=== PATIENT | male | born 1980 | race Caucasian/White ===

== ENCOUNTER 2023-07-29 21:33 | Emergency (ER) | payer OTHER, SELFPAY ==
[2023-07-29 21:34] VITALS: BP 165/115; PULSE 93; RESP 15; TEMP 36.4; O2SAT 100; BMI 27.1
--- NOTE | 2023-07-29 22:05 | ED.VIS.CHEST ---
HPI History of Present Illness Chief Complaint: Chest Pain Informant: patient and family Onset/Context/Timing Onset: Days (A couple days) Activity at onset: gradual Timing: Waxes and wanes Quality: Positive for Heaviness and Pressure Location: Substernal Narrative Narrative: Patient presents with chest heaviness and shortness of breath for the past couple of days. He states earlier tonight he felt lightheaded. He has had occasional episodes where his heart feels like it skips beats. He does have a history of hypertension and high cholesterol. He has had a stress test in the past and believes it was about 2 years ago. There is a strong family history of cardiac disease. Patient is under increased stress with a current separation from his significant other. [facility] Medical History (Updated 07/29/23 @ 23:[address] Trixie Rg MD) High cholesterol HTN (hypertension) Home Medications atorvastatin 20 mg tablet 20 mg PO QODAY 07/29/23 [History Last Taken Unknown] lorazepam 1 mg tablet (Ativan) 1 mg PO BID PRN anxiety #14 tabs 07/29/23 [Rx Last Taken Unknown] losartan 25 mg tablet 25 mg PO DAILY 07/29/23 [History Last Taken Unknown] Allergy/AdvReac Type Severity Reaction Status Date / Time No Known Allergies Allergy Verified 07/29/23 21:36 Social History Smoking Status: Current every day smoker tobacco type: cigarettes ROS ROS ED Constitutional Constitutional ED: Denies chills or fever(s) Eyes Eyes: Denies discharge from eye(s) ENT ENT ED: Denies discharge from eye(s), rhinorrhea or sore throat Cardiovascular Cardiovascular: Reports chest pain and palpitations Respiratory/Chest Respiratory/Chest: Reports dyspnea; Denies cough Gastrointestinal Gastrointestinal: Denies abdominal pain, nausea or vomiting Musculoskeletal Musculoskeletal: Denies back pain or extremity pain Integumentary Denies Abrasions or rash Neurologic Neurologic: Denies headache(s) or weakness Psychiatric Psychiatric: Denies anxiety or depression Allergic/Immunologic Allergic/Immunologic ED: Denies lip swelling or urticaria EXAM Physical Exam Const Vital Signs: 07/29/23 21:34 07/29/23 22:16 07/29/23 22:19 Temperature 97.5 F L Temperature Source Temporal Pulse Rate 93 85 Respiratory Rate 15 18 Respiratory Effort Normal Non-Labored Blood Pressure 165/115 H 136/94 H Blood Pressure Mean 131 108 Pulse Ox 100 100 Oxygen Delivery Method Room Air Room Air 07/29/23 22:22 Temperature Temperature Source Pulse Rate Respiratory Rate Respiratory Effort Blood Pressure Blood Pressure Mean Pulse Ox 99 Oxygen Delivery Method Room Air Positive well nourished and well developed General Appearance ED: well developed HEENT Reports normocephalic and head/scalp atraumatic Eyes PERRL and EOMs intact bilaterally Neck supple Chest Wall inspection of chest normal and palpation of chest normal Resp normal respiratory effort and clear to auscultation bilaterally Cardio regular rate and regular rhythm GI normal to inspection, nondistended, normoactive bowel sounds Palpation: soft Extremity normal to inspection Neuro oriented x3 and no sensory deficits noted Sensorium / Orientation: alert Motor Exam: strength 5/5 throughout Psych Psych Narrative: Flat affect Mood & Affect: anxious Skin no rashes or lesions noted MDM MDM MDM Narrative Medical decision making narrative: Patient placed on conveyor monitor. Aspirin given. EKG obtained to evaluate for cardiac arrhythmia/ischemia. Chest x-ray obtained to evaluate for acute lung pathology, cardiac size, or mediastinal abnormality. Labwork obtained to evaluate for leukocytosis, anemia, and electrolyte derangement. History & Record Review Discussion w/independent historian: Patient and Family Lab Data Attestation: I reviewed the patient's lab results. Labs: Laboratory Results - last 24 hr 07/29/23 21:45 WBC 12.4 H RBC 5.22 Hgb 17.0 H Hct 49.0 MCV 93.9 MCH 32.6 H MCHC 34.7 RDW Std Deviation 43.2 RDW Coeff of Amaya 12.5 Plt Count 278 MPV 10.5 Immature Gran % (Auto) 0.400 Neut % (Auto) 67.9 Lymph % (Auto) 23.6 [place] % (Auto) 6.9 Eos % (Auto) 0.8 Baso % (Auto) 0.4 Absolute Neuts (auto) 8.4 H Absolute Lymphs (auto) 2.93 Nucleated RBC % 0 D-Dimer Quant (PE/DVT) < 0.27 L Sodium 139 Potassium 3.5 Chloride 105 Carbon Dioxide 28.0 Anion Gap 6 BUN 10 Creatinine 0.89 Estim Creat Clear Calc 91.46 Est GFR (MDRD) Af Amer 121 Est GFR (MDRD) Non-Af 100 BUN/Creatinine Ratio 11.2 Glucose 103 Calcium 9.4 Troponin I High Sens 4 Radiography Chest X-Ray - ED: 1 View, Read by ED Physician, Normal, Heart, Lungs and Mediastinum Diagnostic Testing: Clinical Impression(s) from Imaging Studies Chest X-Ray 07/29/23 22:24 IMPRESSION: No radiographic evidence of acute cardiopulmonary disease. Electronically Signed: Jovan Blank MD at 22:58 EDT Reading Location ID and State: [facility] / [place] Tel , Service support , EKG Initial EKG: Attestation: I personally reviewed and interpreted this EKG as follows: Interpretation: Sinus Rhythm (Sinus at 95 with no acute ischemia.) Treatment and Re-Evaluation :: CBC was a white count of 12.4 with normal differential. Hemoglobin concentrated at 17. Chemistry studies are unremarkable. Troponin is normal at 4 and D-dimer is less than 0.27. Portable chest x-ray per my interpretation reveals no acute findings. Radiology interpretation reviewed and agrees. EKG is sinus rhythm with no acute ischemia. Patient is had no significant arrhythmias noted on conveyor monitor. On repeat evaluation he states he felt like both of his hands were numb. He did have some hyperventilation. He was given 0.5 mg of IV Ativan to help with anxiety. At this time patient does have some improvement in his symptoms. I did discuss with him that his work-up is normal and I do feel a lot of his symptoms are based on anxiety and stress. He will be given a prescription for Ativan and encouraged to follow-up with his primary care physician for more long-term anxiety medication. Discharge Plan Triage Chief Complaint: Chest Pain ED Provider: Trixie Rg Dx/Rx/DC Orders Clinical Impression: Anxiety, Chest pain Instructions: ED Anxiety Reaction, ED Chest Pain, Noncardiac Prescriptions: New lorazepam [Ativan] 1 mg tablet 1 mg PO BID PRN (Reason: anxiety) Qty: 14 0RF No Action atorvastatin 20 mg tablet 20 mg PO QODAY Patient Comments: TAKE 1 TABLET BY MOUTH DAILY AT BEDTIME. FOR CHOLESTEROL losartan 25 mg tablet 25 mg PO DAILY Patient Comments: TAKE 1 TABLET BY MOUTH EVERY DAY Primary Care Provider: Marco Antonio Campos Referrals: Marco Antonio Campos MD [Primary Care Provider] - 5-7 Days Disposition Disposition: Home, Self Care
[2023-07-29] MEDS: Aspirin 81 MG TAB.CHEW 324 MG PO (22:14)
[2023-07-29] MEDS: Ondansetron 4 MG/2 ML Vial IV (22:14)
[2023-07-29 22:15] LABS: Absolute Lymphocyte Count 2.93 X10^3/uL (0.83-4.51); Absolute Neutrophil Count 8.4 X10^3/uL (2.0-7.7); Basophil# 0.05 X10^3/uL; Basophil% 0.4 % (0-1); Eosinophils% 0.8 % (0-5); Lymphocyte # 2.93 X10^3/ul (0.83-4.51); Lymphocyte % 23.6 % (19-41); Mean Corp Hgb Conc 34.7 g/dL (32-36); Mean Corpuscular Hgb 32.6 pg (27.0-32.0); Mean Corpuscular Volume 93.9 fL (80-94); Mean Platelet Vol. 10.5 fl (6.2-12.0); Monocyte# 0.86 X10^3/uL; Monocyte% 6.9 % (0-10); NRBC Flagged by Analyzer 0 % (0-5); Neutrophil # 8.44 X10^3/uL (2.7-7.7); Neutrophil % 67.9 % (47-70); Platelet Count 278 K/mm3 (150-450); RBC Distribution Width CV 12.5 % (11.6-14.6); RBC Distribution Width SD 43.2 fl (35.1-43.9); Red Blood Count 5.22 M/mm3 (4.6-6.2); White Blood Count 12.4 K/mm3 (4.4-11.0)
[2023-07-29 22:19] VITALS: BP 136/94; PULSE 85; RESP 18; O2SAT 100
[2023-07-29 22:22] VITALS: O2SAT 99
--- NOTE | 2023-07-29 22:24 | RAD_ITS ---
INDICATION: chest pain EXAMINATION/TECHNIQUE: X-RAY - portable upright AP chest x-ray COMPARISON: None. FINDINGS: LINES/DEVICES: None. LUNGS: No consolidation, edema or effusion. No pneumothorax. MEDIASTINUM AND CARDIOVASCULAR STRUCTURES: Cardiac silhouette not enlarged. Central airways and mediastinal contour are unremarkable. BONES AND SOFT TISSUES: Unremarkable. RAD/Chest 1 View (Portable) IMPRESSION: No radiographic evidence of acute cardiopulmonary disease. Electronically Signed: Jovan Blank MD at 22:58 EDT ,
[2023-07-29 22:36] LABS: Anion Gap 6 (5-15); BUN 10 mg/dL (7-18); BUN/Creat Ratio 11.2 RATIO (10-20); Calcium,Total 9.4 mg/dL (8.5-10.1); Chloride 105 mmol/L (98-107); Creatinine, Serum 0.89 mg/dL (0.70-1.30); EST Glomerular Filtration Rate 100 mL/min (>60); Est Glom Filt Rate - Afr Amer 121 mL/min (>60); Estimated Creatinine Clearance 91.46 ml/min; Glucose 103 mg/dL (74-106); Potassium 3.5 mmol/L (3.5-5.1); Sodium Level 139 mmol/L (136-145); Troponin-I HS 4 pg/mL (3.0-78.0)
[2023-07-29 22:38] LABS: D-Dimer Quantitative (DVT/PE) < 0.27 FEU/ug/m (0.27-0.49)
[2023-07-29] MEDS: LORazepam 2 MG/ML Syringe 0.5 MG IV (22:55)
[2023-07-29 23:45] VITALS: BP 118/78; PULSE 82; RESP 16; O2SAT 98
== END 2023-07-29 23:55 | disposition home or self-care (01) ==
PROVIDERS: Emergency Provider Emergency Medicine; PCP Family Medicine; Visit Provider Emergency Medicine
DX: F41.9 Anxiety disorder, unspecified (principal); R07.9 Chest pain, unspecified; F17.210 Nicotine dependence, cigarettes, uncomplicated; I10 Essential (primary) hypertension; E78.00 Pure hypercholesterolemia, unspecified; Z79.899 Other long term (current) drug therapy
CPT/HCPCS: 71045; 80048; 84484; 85025; 85379; 93005; 96374; 96375; 99283; A4216; J2405

== ENCOUNTER 2023-08-12 13:52 | Emergency (ER) | payer OTHER, SELFPAY ==
[2023-08-12 13:54] VITALS: BP 108/61; PULSE 100; RESP 14; TEMP 35.7; O2SAT 100; BMI 25.7
--- NOTE | 2023-08-12 14:03 | EKG12_ITS ---
Test Reason : CP Blood Pressure : / mmHG Vent. Rate : 083 BPM Atrial Rate : 083 BPM P-R Int : 160 ms QRS Dur : 094 ms QT Int : 362 ms P-R-T Axes : 072 018 029 degrees QTc Int : 425 ms Normal sinus rhythm Nonspecific T wave abnormality Abnormal ECG When compared with ECG of 29-JUL-2023 21:38, Nonspecific T wave abnormality now evident in Lateral leads Confirmed by SANDEEP FABIAN, TREVER ([id number]), supervising editor trailer KANDY MARQUEZ ([id number]) on 08/25/2023 12:56:12 PM Referred By: MELISSA Confirmed By:TREVER HOPKINS MD
--- NOTE | 2023-08-12 16:31 | EX.ED.VIS.PS ---
HPI HPI - Psych History of Present Illness Chief Complaint: Anxiety Informant: patient Narrative Narrative: Patient is a 43-year-old male with history of hyperlipidemia and hypertension presenting for increased anxiety as well as insomnia. Patient states he is currently going through a divorce and has been doing a lot of anxiety associated with this. He started Zoloft and hydroxyzine per his PCP yesterday (was seen on Wednesday however the prescription was finally filled yesterday). He states at work today he had he describes as a panic attack. He said he said for like his heart was fluttering in his chest and some was poking him in the chest however this is since resolved. He expresses to me that his main concern is his inability to sleep. He states for the past 4 nights he has not been able to sleep. 2 of those nights he got absolutely no sleep and another 2 nights he only slept for 1 hour. He is cut off caffeine since the anxiety started. Has not had any alcohol in the past 3 to 4 days. He denies any SI or HI. He notes that he is having a hard time focusing and keeping his thoughts straight. No other complaints at this time. Currently has no chest discomfort. [facility] Medical History High cholesterol HTN (hypertension) Home Medications atorvastatin 20 mg tablet 20 mg PO QODAY 07/29/23 [History Last Taken Unknown] lorazepam 1 mg tablet (Ativan) 1 mg PO BID PRN anxiety #14 tabs 07/29/23 [Rx Last Taken Unknown] losartan 25 mg tablet 25 mg PO DAILY 07/29/23 [History Last Taken Unknown] hydroxyzine pamoate 25 mg capsule 25 mg PO Q6H PRN anxiety 08/12/23 [History Last Taken 08/12/23] zolpidem 10 mg tablet (Ambien) 10 mg PO QHS PRN insomnia #5 tabs 08/12/23 [Rx Last Taken Unknown] Allergy/AdvReac Type Severity Reaction Status Date / Time No Known Allergies Allergy Verified 08/12/23 13:53 Social History Smoking Status: Current every day smoker tobacco type: cigarettes ROS ROS ED Constitutional Constitutional ED: Reports other Details: decreased appetite, but improving ; Denies chills or fever(s) Eyes Eyes: Denies change in vision Cardiovascular Cardiovascular: Reports chest pain and racing heartbeat Respiratory/Chest Respiratory/Chest: Denies cough or dyspnea Gastrointestinal Gastrointestinal: Denies abdominal pain, nausea or vomiting Musculoskeletal Musculoskeletal: Denies arthralgias or myalgias Integumentary Denies rash Neurologic Neurologic: Denies headache(s) Psychiatric Psychiatric: Reports anxiety; Denies depression, suicidal ideation or suicidal thoughts EXAM Physical Exam Const Vital Signs: 08/12/23 13:54 Temperature 96.3 F L Temperature Source Temporal Pulse Rate 100 Respiratory Rate 14 Blood Pressure 108/61 Blood Pressure Mean 76 Pulse Ox 100 Oxygen Delivery Method Room Air Positive well nourished and well developed General Appearance ED: well developed and NAD; Negative for pallor HEENT Reports moist mucous membranes normocephalic and atraumatic Eyes PERRL and EOMs intact bilaterally Resp normal respiratory effort and clear to auscultation bilaterally Cardio no murmurs Rate: regular rate Rhythm: regular rhythm GI non-tender and non-distended Extremity normal to inspection Neuro oriented x3 Sensorium / Orientation: alert Motor Exam: muscle tone normal throughout; Negative for general weakness Psych mental status grossly normal, thought process normal, cooperative, affect normal, speech normal and activity/motor behavior normal Skin General Skin Exam: Negative for jaundice or pallor Rashes: no rashes MDM MDM MDM Narrative Medical decision making narrative: Is evaluated for worsening anxiety and insomnia. It appears to be situational associated with the divorce he is going through. Has no HI or SI. Protocol EKG obtained per triage shows normal sinus rhythm with nonspecific T wave changes, does not appear significantly changed compared to prior EKG on 07/29/2023. Patient was evaluated for shortness of breath and chest heaviness as well as lightheadedness on that date in our ER. At that time is also thought to be sedentary to anxiety and he had a negative Cardiac work-up. Given his symptoms are resolved and really seem to be associated with a situational anxiety and stress I do not think he requires another cardiac work-up. Patient is comfortable with this. We will put the patient on a short course of Ambien until his Zoloft hopefully will start helping. I did discuss the case with his PCP, Dr. Verduzco who is agreeable with this plan of care. Patient counseled to avoid alcohol. Counseled return precautions. At this time he does not require inpatient psychiatric evaluation. Given return precautions. Discharged home in stable condition. Rhythm Strip Rhythm Strip: Sinus Rhythm Rate: 83 Ectopy: None EKG Initial EKG: Attestation: I personally reviewed and interpreted this EKG as follows: Interpretation: Sinus Rhythm Comments: Sinus rhythm at a rate of 83 bpm Normal axis Normal intervals None civic T wave changes No significant change compared to prior EKG Management Discussion w/another healthcare provider: PCP Discharge Plan Triage Chief Complaint: Anxiety ED Provider: Freida Cantu Dx/Rx/DC Orders Clinical Impression: Insomnia, Anxiety Instructions: ED Insomnia, ED Panic Attack Prescriptions: New zolpidem [Ambien] 10 mg tablet 10 mg PO QHS PRN (Reason: insomnia) Qty: 5 0RF No Action atorvastatin 20 mg tablet 20 mg PO QODAY Patient Comments: TAKE 1 TABLET BY MOUTH DAILY AT BEDTIME. FOR CHOLESTEROL losartan 25 mg tablet 25 mg PO DAILY Patient Comments: TAKE 1 TABLET BY MOUTH EVERY DAY lorazepam [Ativan] 1 mg tablet 1 mg PO BID PRN (Reason: anxiety) Qty: 14 0RF hydroxyzine pamoate 25 mg capsule 25 mg PO Q6H PRN (Reason: anxiety) Rx Instructions: 1-2 tab every 6hrs prn anxiety Primary Care Provider: Marco Antonio Campos Referrals: Marco Antonio Campos MD [Primary Care Provider] - Activity Restrictions/Additional Instructions: Do not mix alcohol with medication prescribed. Continue taking the Zoloft and hydroxyzine as needed for symptoms. Follow-up with your primary care doctor next week to check and see how you are doing. The office today or tomorrow to make the appointment. Disposition Disposition: Home, Self Care
[2023-08-12 16:50] VITALS: BP 116/82; PULSE 70; RESP 16; O2SAT 98
== END 2023-08-12 16:51 | disposition home or self-care (01) ==
PROVIDERS: Emergency Provider Emergency Medicine; PCP Family Medicine; Visit Provider Emergency Medicine
DX: G47.00 Insomnia, unspecified (principal); F41.9 Anxiety disorder, unspecified; F17.210 Nicotine dependence, cigarettes, uncomplicated; Z79.899 Other long term (current) drug therapy
CPT/HCPCS: 93005; 99282

== ENCOUNTER 2025-07-31 18:47 | Emergency (ER) | payer OTHER, SELFPAY ==
[2025-07-31 18:47] VITALS: BP 156/110; PULSE 112; RESP 16; TEMP 37.1; O2SAT 99; BMI 28.8
--- NOTE | 2025-07-31 18:56 | CT_ITS ---
PROCEDURE: CT/Abdomen/Pelvis W IV Cont ONLY
[2025-07-31] MEDS: 0.9% Normal Saline (1000mL) 1,000 ML 1000 ML IV (19:17)
--- NOTE | 2025-07-31 19:17 | EX.ED.DYSGE1 ---
HPI History of Present Illness Chief Complaint: Abd Pain Detail of Chief Complaint: Left lower quadrant abdominal pain Informant: patient Onset/Context/Timing Onset: Today Context: Sudden Onset Timing: Continuous Quality: Left lower quadrant pain Location: Left lower quadrant Current Severity: Mild Maximum Severity: Moderate Worsened by: Nothing specific for patient Relieved by: Nothing Associated Symptoms Associated Symptoms: Subjective fever and chills and constant Narrative Narrative: Patient 45-year-old male. Has history of hypertension. He also has history of insomnia. He presents with left lower quadrant pain started this morning. He does endorse constipation. He denies history diverticulosis or diverticulitis. He denies history of renal ureteral calculi. He denies dysuria or hematuria. He states he is going to frequent small amounts. He denies nausea or vomiting. He denies diarrhea. He denies trauma. Prior similar symptoms: No Recent Illness/Hospitalization: No PFSH PFSH Medical History High cholesterol HTN (hypertension) Home Medications ?Medication ?Instructions ?Recorded ?Last Taken ?Type atorvastatin 20 mg tablet 20 mg PO QODAY 07/29/23 Unknown History lorazepam 1 mg tablet (Ativan) 1 mg PO BID PRN anxiety #14 tabs 07/29/23 Unknown Rx losartan 25 mg tablet 25 mg PO DAILY 07/29/23 Unknown History hydroxyzine pamoate 25 mg capsule 25 mg PO Q6H PRN anxiety 08/12/23 08/12/23 History zolpidem 10 mg tablet (Ambien) 10 mg PO QHS PRN insomnia #5 tabs 08/12/23 Unknown Rx amoxicillin 875 mg-potassium 875 mg PO Q12H #14 TABLETS 07/31/25 Unknown Rx clavulanate 125 mg tablet hydrocodone-acetaminophen 5-325mg 1 tab PO Q6H PRN PRN Pain 3 days 07/31/25 Unknown Rx 5mg-325mg #10 TABLETS Allergy/AdvReac Type Severity Reaction Status Date / Time No Known Allergies Allergy Verified 07/31/25 18:48 Social History Smoking Status: Current every day smoker tobacco type: cigarettes ROS ROS ED Constitutional Constitutional ED: Reports chills, fever(s) and subjective Eyes Eyes: Denies blurry vision, change in vision or diplopia ENT ENT ED: Denies rhinorrhea or sore throat Cardiovascular Cardiovascular: Denies chest pain or palpitations Respiratory/Chest Respiratory/Chest: Reports dyspnea; Denies cough or dyspnea on exertion Gastrointestinal Gastrointestinal: Reports abdominal pain and constipation; Denies diarrhea, melena, nausea or vomiting Genitourinary Genitourinary ED: Reports urinary frequency; Denies dysuria or hematuria Musculoskeletal Musculoskeletal: Denies arthralgias, back pain, myalgias or neck pain Integumentary Denies rash Neurologic Neurologic: Denies paresthesias or weakness Psychiatric Psychiatric: Reports depression Endocrine Endocrinology: Denies cold intolerance or heat intolerance Hematologic/Lymphatic Hematologic/Lymphatic: Reports systems reviewed and no addt'l complaints, except as documented EXAM Physical Exam Const Vital Signs: 07/31/25 18:47 07/31/25 20:52 Temperature 98.8 F Temperature Source Oral Pulse Rate 112 H 100 Respiratory Rate 16 16 Blood Pressure 156/110 H 154/103 H Blood Pressure Mean 125 120 Pulse Ox 99 98 Oxygen Delivery Method Room Air Room Air Positive well nourished and well developed Constitutional Narrative: She appears ill and uncomfortable. Vitals remarkable for tach heart rate of 112 and blood pressure 156/110. He is not tachypneic or hypoxic General Appearance ED: well developed and pallor HEENT Reports dry mucous membranes HEENT Narrative: Head is atraumatic and normocephalic. Ears are normal. Nares are patent. Posterior pharynx is normal Mouth ED: Yes dry mucous membranes Mouth: dry mucous membranes Eyes PERRL and EOMs intact bilaterally General Eye ED: Negative for pale conjunctiva or scleral icterus Neck no lymphadenopathy, supple and no JVD Resp normal respiratory effort and clear to auscultation bilaterally Cardio regular rhythm, S1 normal heart sound, S2 normal heart sound and no murmurs Rate: tachycardic GI no masses; Negative for normal to inspection, nondistended, normoactive bowel sounds, non-tender, non-distended or hepatosplenomegaly Inspection: abdominal distention Auscultation: hypoactive bowel sounds Palpation: soft, tender LLQ, guarding LLQ and rebound tenderness present other (Left lower quadrant); Negative for splenomegaly or mass Narrative: No inguinal mass or lymphadenopathy. No CVA tenderness. Extremity normal to inspection General Extremety ED: Negative for edema or tenderness General Extremity: Negative for edema Neuro oriented x3, CN's II-XII intact bilaterally and no sensory deficits noted Sensorium / Orientation: alert Motor Exam: strength 5/5 throughout Psych mental status grossly normal Skin no rashes or lesions noted, no wounds and No skin turgor normal General Skin Exam: elasticity normal and pallor; Negative for jaundice MDM MDM MDM Narrative Medical decision making narrative: Differential diagnosis is diverticulitis, abdominal pain of unknown etiology, malignancy, history physical not consistent with inflammatory bowel disorder, renal calculi. Appropriate blood work was ordered as well as CAT scan. He was medicated with Zofran for his nausea and morphine for his pain. History & Record Review Additional record(s) reviewed:: Prior ED visit (August 12, [address] Cantu for anxiety. He was seen July [address] Evangelista for chest pain. His workup was negative.) and Prior labs Lab Data Labs: Laboratory Results - last 24 hr 07/31/25 19:18 WBC 17.0 H RBC 5.05 Hgb 16.9 H Hct 46.4 MCV 91.9 MCH 33.5 H MCHC 36.4 H RDW Std Deviation 41.4 RDW Coeff of Maaya 12.3 Plt Count 230 MPV 10.0 Immature Gran % (Auto) 0.500 Neut % (Auto) 82.4 H Lymph % (Auto) 10.3 L [place] % (Auto) 6.3 Eos % (Auto) 0.2 Baso % (Auto) 0.3 Absolute Neuts (auto) 14.0 H Absolute Lymphs (auto) 1.75 Nucleated RBC % 0 Sodium 136 Potassium 3.7 Chloride 99 Carbon Dioxide 23.3 Anion Gap 14 BUN 9 Creatinine 0.86 Estim Creat Clear Calc 103.39 Est GFR (MDRD) Non-Af 110 BUN/Creatinine Ratio 10.8 Glucose 121 H Lactic Acid 1.5 Calcium 9.6 Total Bilirubin 0.60 AST 24 ALT 31 Alkaline Phosphatase 121 Total Protein 7.3 Albumin 4.5 Globulin 2.7 Albumin/Globulin Ratio 1.7 Radiography Diagnostic Testing: Clinical Impression(s) from Imaging Studies Abdomen/Pelvis CT 07/31/25 18:56 IMPRESSION: Acute uncomplicated sigmoid diverticulitis/colitis. Reading Location: [id number] After reviewing the interpretation by radiologist patient was reassessed. He has no peritoneal findings. He still has tenderness left lower quadrant. Since he is no longer tachycardic is not febrile he is a candidate for outpatient therapy. He would prefer outpatient therapy because he does not have insurance. In light of this we will give him first dose of antibiotics in department. He will discharge with prescription for Augmentin and pain medicine. Will receive instructions regarding follow-up versus returning to the emergency department. Treatment and Re-Evaluation :: I was told that patient had increased pain in his right having the rails of the bed. He believes it is anxiety. 0.5 mg of lorazepam was ordered. 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 FOR CHOLESTEROL losartan 25 mg tablet 25 mg PO DAILY Patient Comments: TAKE 1 TABLET BY MOUTH EVERY DAY lorazepam [Ativan] 1 mg tablet 1 mg PO BID PRN (Reason: anxiety) Qty: 14 0RF hydroxyzine pamoate 25 mg capsule 25 mg PO Q6H PRN (Reason: anxiety) Rx Instructions: 1-2 tab every 6hrs prn anxiety zolpidem [Ambien] 10 mg tablet 10 mg PO QHS PRN (Reason: insomnia) Qty: 5 0RF Primary Care Provider: Marco Antonio Campos Referrals: Marco Antonio Campos MD [Primary Care Provider, Family Practice] - 3-5 Days Activity Restrictions/Additional Instructions: If you develop a temperature greater than 100 with shaking chills or abrupt onset of acute pain return to the emergency department immediately If the medication does not control your pain you may return to the ER or follow-up with your doctor. Take antibiotics until gone Liquid diet next day or 2 then advance as tolerated Print Language: Korean Disposition Disposition: Home, Self Care
[2025-07-31 19:26] LABS: Hematocrit 46.4 % (40-54); Hemoglobin 16.9 g/dL (13.0-16.5); Immature Granulocytes Count 0.080 X10^3/uL (0.0-0.0); Mean Corp Hgb Conc 36.4 g/dL (32-36); Mean Corpuscular Volume 91.9 fL (80-94); Mean Platelet Vol. 10.0 fl (6.2-12.0); NRBC Flagged by Analyzer 0 % (0-5); Platelet Count 230 K/mm3 (150-450); RBC Distribution Width CV 12.3 % (11.6-14.6); RBC Distribution Width SD 41.4 fl (35.1-43.9); Red Blood Count 5.05 M/mm3 (4.6-6.2); White Blood Count 17.0 K/mm3 (4.4-11.0)
[2025-07-31 19:44] LABS: AST(SGOT) 24 U/L (<=37); Alanine Aminotransfer ALT/SGPT 31 U/L (<=46); Albumin, Serum 4.5 g/dL (3.5-5.0); Alkaline Phosphatase 121 U/L (40-129); Anion Gap 14 (5-15); BUN 9 mg/dL (4-19); BUN/Creat Ratio 10.8 RATIO (10-20); Calcium,Total 9.6 mg/dL (7.6-11.0); Carbon Dioxide 23.3 mmol/L (21.0-32.0); Chloride 99 mmol/L (98-108); Estimated Creatinine Clearance 103.39 ml/min (50-250); Globulin 2.7 g/dL (2.2-4.2); Glucose 121 mg/dL (70-99); Potassium 3.7 mmol/L (3.3-5.1)
[2025-07-31 20:52] VITALS: BP 154/103; PULSE 100; RESP 16; O2SAT 98
[2025-07-31] MEDS: Piperacil/Tazobactam 4.5 GM in 0.9% Normal Saline (100mL MB+) 100 ML IV (21:31)
[2025-07-31] MEDS: HYDROcodone Bitartrate/Apap 5/325 Tablet PO (21:42)
[2025-07-31 21:47] VITALS: BP 159/106; PULSE 110; RESP 18; TEMP 36.7; O2SAT 98
[2025-07-31 22:00] VITALS: RESP 18
== END 2025-07-31 22:21 | disposition home or self-care (01) ==
PROVIDERS: Emergency Provider Emergency Medicine; PCP Family Medicine; Visit Provider Emergency Medicine
DX: R10.32 Left lower quadrant pain (principal); K57.32 Diverticulitis of large intestine without perforation or abscess without bleeding; R00.0 Tachycardia, unspecified; I10 Essential (primary) hypertension; E78.00 Pure hypercholesterolemia, unspecified; Z79.899 Other long term (current) drug therapy; F17.210 Nicotine dependence, cigarettes, uncomplicated
CPT/HCPCS: 74177; 80053; 83605; 85025; 96361; 96365; 96375; 96376; 99283; Q9967; A4216; J2405